=== PATIENT | male | born 1990 | race Caucasian/White ===

== ENCOUNTER 2016-06-22 11:38 | Emergency (ER) | payer OTHER ==
[~2016-06-22] VITALS: Ht 175.3 cm; Wt 73.0 kg
[2016-06-22] MEDS ORDERED: IBUP80TA PO (13:25)
[2016-06-22] MEDS ORDERED: ZOFR4TAB3 PO (13:25)
[2016-06-22] MEDS ORDERED: ZITH250T PO (13:25)
[2016-06-22] MEDS ORDERED: MUCI600T34 PO (13:25)
[2016-06-22] MEDS ORDERED: AZITHROMYCIN 250 MG TAB PO ONE (13:30)
[2016-06-22] MEDS ORDERED: ONDANSETRON 4 MG ORAL DISINTEGRATING TAB (S0181) PO ONE (13:30)
[2016-06-22] MEDS ORDERED: ACETAMINOPHEN 325 MG TAB PO ONE (13:30)
[2016-06-22 13:33] VITALS: BP 122/68
== END 2016-06-22 13:44 | disposition home or self-care (01) ==
LOC: M ED 13:06
DX: J01.90 Acute sinusitis, unspecified (principal); R51 Headache; R11.0 Nausea; Z88.0 Allergy status to penicillin; Z72.0 Tobacco use